=== PATIENT | female | born 1990 | race Caucasian/White ===

== ENCOUNTER → 2019-06-30 | Outpatient (CLI) | payer BC ==
--- NOTE | 2019-06-30 15:56 | Diagnostic Imaging Report ---
Pelvic ultrasound. History: Uterine leiomyoma. Comparison: Prior ultrasound 11/14/2016, MRI 11/29/2016. Discussion: Transabdominal evaluation of the pelvis was performed in the transverse and longitudinal planes. The uterus is normal in size measuring 7.8 x 5.7 x 3.7 cm and contains an exophytic hypoechoic mass near the fundus measuring 5.3 x 4.5 x 4.2 cm, previously measuring 3.4 x 3.0 x 3.1 cm. The endometrial stripe is within normal limits at 3 mm. The right ovary measures 3.0 x 2.3 x 1.8 cm. The left ovary was not visible there is no evidence of an adnexal mass. There is no evidence of free fluid. IMPRESSION: Interval enlargement of pedunculated uterine fibroid. Signed by: Abiel Garcia on 06/30/2019 3:53 PM
== END ==
LOC: US 13:45
PROVIDERS: ATTEND Obstetrics & Gynecology
DX: D25.9 Leiomyoma of uterus, unspecified (principal)
CPT/HCPCS: 76856

== ENCOUNTER → 2020-09-14 | Outpatient (CLI) | payer BC ==
--- NOTE | 2020-09-14 10:47 | Diagnostic Imaging Report ---
Exam: Pelvic ultrasound. History: Uterine fibroid Comparison: Pelvic ultrasound of 06/30/2019 Findings: Transabdominal sonographic evaluation of the pelvis. The uterus is anteverted in position, measuring 7.4 x 3.6 x 4.5cm. Right uterine pedunculated fibroid measures up to 6.7 x 5.3 x 6.1 cm (previously 5.3 x 4.5 x 4.2 cm). Endometrial stripe thickness is 8 millimeters. The right ovary measures 2.3 x 2.1 x 1.6 cm and appears unremarkable. The left ovary measures 2.6 x 1.3 x 1.9 cm and appears unremarkable. No free fluid in the pelvis. Impression: Slight interval increase in size of right pedunculated uterine fibroid. Signed by: Alex Rodriguez MD on 09/14/2020 10:44 AM
== END ==
LOC: US 08:18
PROVIDERS: ATTEND Obstetrics & Gynecology
DX: D25.9 Leiomyoma of uterus, unspecified (principal)
CPT/HCPCS: 76856

== ENCOUNTER → 2024-03-09 | Outpatient (REF) | payer OTHER | LOC: US 13:54 | PROVIDERS: ATTEND Obstetrics & Gynecology | DX: D25.9 Leiomyoma of uterus, unspecified (principal) | CPT/HCPCS: 76856 ==